=== PATIENT | male | born 1975 | race Asian ===

== ENCOUNTER 2023-10-13 23:45 | Observation (INO) | payer OTHER, SELFPAY ==
[2023-10-13 21:45] VITALS: BP 107/71
--- NOTE | 2023-10-13 21:52 | ED.CVA ---
History of Present Illness
General
Chief Complaint: CVA/TIA Symptoms
Source: patient and family
Exam Limitations: none
Time Seen by Provider: 10/13/23 21:52
Nursing documentation reviewed up to this point in time: agreed with
Onset of Stroke Symptoms
Onset of symptoms known: Yes
Date of onset of symptoms: 09/29/23
History of Present Illness
History of Present Illness:
Pleasant 48-year-old male that presents with inability to write. Patient states that for the last week and 1/2 to 2 weeks, he has been unable to write sentences with his hand. He has been able to type and speak normally. Denies slurring of
speech. Reports no confusion or headache. noticed this symptom this past weekend when she asked him to write out a check. He states that he was unable to fill 1 out correctly. Though nothing changed today, wanted to bring him in for
evaluation. Patient was given a blank check to fill out and was unable to do so in the emergency department. He states that his results, (which are scanned into the chart), were his best effort.
Phy Exam
General Physical Exam
General Presentation: well appearing and no apparent distress
General Skin: warm and dry
General Habitus: normal
General Mental: alert
General Hydration: appears well hydrated
ENT Exam
ENT Exam: EOMI, pharynx normal, neck supple and normocephalic
Eye Exam
Eye Exam: PERRL, cornea clear and conjunctiva normal
Cardiovascular Exam
Cardiovascular Exam: regular rate/rhythm, no edema, no murmur and normal peripheral pulses
Pulmonary Exam
Pulmonary Exam: lungs clear, no respiratory distress, no rales, no crackles, no rhonchi, no stridor, no wheezing and no cough
Gastrointestinal Exam
Gastrointestinal Exam: normal bowel sounds, non tender, soft, no organomegaly, no pulsatile mass and non distended
Neurological Exam
Neurological Exam: alert, oriented x3, no motor deficits and speech normal
Musculoskeletal Exam
Musculoskeletal Exam: full ROM and no edema
Skin Exam
Skin Exam: normal color, warm/dry, no rash and no petechia
Psychiatric Exam
Psychiatric Exam: normal mood/affect
Scores
NIH Stroke Score
Level of Consciousness: 0 - Alert
LOC Questions: 0-Answers both correctly
LOC Commands: 0-Performs both correctly
Best Horizontal Gaze: 0-Normal
Visual Rivera: 0=Normal, no visual loss
Facial Palsy: 0=Normal, symmetrical
Motor - Right Arm: 0=No drift 10 seconds
Motor - Left Arm: 0=No drift 10 seconds
Motor - Right Le-No drift 5 seconds
Motor - Left Le-No drift 5 seconds
Limb Ataxia: 0-Absent
Sensation: 0-Normal
Best Language: 0-No aphasia
Dysarthria: 0-Normal
Extinction and Inattention: 0-No abnormality
Total Score:: 0
Course
Orders/Labs/Results
Orders:
Orders
10/13/23 22:07
CT Head & Neck Angio W/wo IV Urgent
Comment:
Reason For Exam: expressive aphasia
Cardiac Monitoring- Treatment ONCE
10/13/23 22:08
Electrocardiogram (*1) Stat
Reason for Study: Other
Other Reason for Exam: neuro symptoms
EKG- Treatment ONCE
10/13/23 22:11
Complete Blood Count/With Diff Urgent
Comprehensive Metabolic Panel Urgent
Erythrocyte Sed Rate Urgent
PTT Urgent
Prothrombin Time Urgent
Troponin I Urgent
Abnormal Lab Results
10/13/23
22:11
RBC 4.51 L 10^6/uL
(4.70-6.10)
Hct 37.7 L %
(39.0-52.0)
Absolute Monos (auto) 0.7 H 10^3/uL
(0.1-0.6)
Glucose 100 H mg/dl
(70-99)
10/13/23 22:11
10/13/23 22:11
Vital Signs
Initial and Last Documented VS:
Initial Vital Signs
Temp Pulse Resp BP Pulse Ox
98.5 F 87 18 107/71 99
10/13/23 21:45 10/13/23 21:45 10/13/23 21:45 10/13/23 21:45 10/13/23 21:45
Last Documented Vital Signs
Temp Pulse Resp BP Pulse Ox
98.5 F 70 14 105/73 98
10/13/23 21:45 10/13/23 22:00 10/13/23 22:00 10/13/23 22:00 10/13/23 21:54
*Critical Care Note
Total Time (30-74mins, 75-104mins- exclusive of procedures): Not Applicable
Update Note
Update Note:
Spoke with Dr. Mauro Rodriguez, neurology who agreed with plan for CT CT angio. MRI with gadolinium in the morning.
CT HEAD, CTA HEAD, CTA NECK
IMPRESSION:
HEAD:
No intracranial hemorrhage, herniation, or hydrocephalus.
No calvarial fracture.
CTA HEAD:
No large vessel occlusion or critical stenosis within the anterior or posterior circulation. Hypoplastic right A1.
CTA NECK:
No large vessel occlusion or critical stenosis within the anterior or posterior circulation.
ED Attending Note
-
Portions of this chart may have been created with voice recognition software.� Occasional wrong word or��sound alike� substitutions may have occurred due to the inherent limitations of voice recognition software.
Discharge Plan
Departure
Patient Disposition: Admit
Date of Disposition: 10/13/23
Time of Disposition: 23:40
Presentation/result/management discussed w/ accepting MD/DO: Hospitalist
Condition: Good
Discharge Problem:
Difficulty writing checks, Expressive aphasia
Referrals:
PRIVATE,PHYSICIAN [Family Provider] -
Interventions
Interventions:
*Risk Screen - Suicide Last Done: 10/13/23 21:54
*General Assessment Last Done: 10/13/23 21:45
ED- Fall Risk Assessment Last Done: 10/13/23 21:54
*ED COVID-19 Vaccine History Last Done: 10/13/23 21:54
ED- Pulmonary Assessment Last Done: 10/13/23 21:54
ED- Neurological Assessment Last Done: 10/13/23 21:54
ED- Cardiac Assessment Last Done: 10/13/23 21:54
ED Swallowing Screen Last Done: 10/13/23 22:04
Discharge Date and Time
Print Language: ZIMBAB[place]
[2023-10-13 21:54] VITALS: BMI 25.6
[2023-10-13 21:58] VITALS: BP 119/83
[2023-10-13 22:00] VITALS: BP 105/73
[2023-10-13 22:21] LABS: % Basophils 0.6 % (0-2); % Eosinophils 2.9 % (0-6); % Immature Granulocytes 0.4 % (0-0.5); % Lymphocytes 30.4 % (20.5-51.1); % Monocytes 8.1 % (1.7-9.3); % Neutrophils 57.6 % (42.2-75.2); Absolute Basophils 0.1 10^3/uL (0-0.2); Absolute Eosinophils 0.3 10^3/uL (0-0.7); Absolute Lymphocytes 2.6 10^3/uL (1.2-3.4); Absolute Monocytes 0.7 10^3/uL (0.1-0.6); Absolute Neutrophils 4.9 10^3/uL (1.4-6.5); Hematocrit 37.7 % (39.0-52.0); Hemoglobin 13.5 g/dL (13.0-18.0); Mean Corp Hgb Conc. 35.8 g/dL (33.0-37.0); Mean Corpuscular Hgb 29.9 pg (27.0-31.0); Mean Corpuscular Volume 83.6 fL (80.0-94.0); Mean Platelet Volume 10.2 fL (7.4-10.4); Nucleated Red Blood Cells % 0 % (-); Platelet Count 205 10^3/uL (130-400); Red Blood Cell Count 4.51 10^6/uL (4.70-6.10); Red Cell Dist. Width 12.9 % (11.5-14.5); White Blood Cell Count 8.5 10^3/uL (4.8-10.8)
[2023-10-13 22:32] LABS: INR 1.16; PT 14.6 Sec (11.4-14.6)
[2023-10-13 22:33] LABS: APTT 25.3 Sec (23.4-35.0)
[2023-10-13 22:36] LABS: ALT (SGPT) 23 U/L (0-50); AST (SGOT) 24 U/L (17-59); Albumin 4.2 g/dl (3.5-5.0); Alkaline Phosphatase 67 U/L (38-126); Blood Urea Nitrogen 19 mg/dl (9-20); Calcium 9.1 mg/dl (8.4-10.2); Carbon Dioxide 25 mmol/L (22-30); Chloride 106 mmol/L (98-107); Estimated Creatinine Clearance 86 ml/min; Glucose 100 mg/dl (70-99); Potassium 3.9 mmol/L (3.5-5.1); Sodium 138 mmol/L (135-145); Total Bilirubin 0.8 mg/dl (0.2-1.3); Total Protein 6.9 g/dl (6.3-8.2); eGFR > 60.00
[2023-10-13 22:44] LABS: Erythrocyte Sed Rate 10 mm/hour (0-20)
[2023-10-13 22:47] LABS: Troponin I < 0.012 ng/ml
[2023-10-13 23:00] VITALS: BP 122/75
--- NOTE | 2023-10-13 23:24 | HPS.HSE ---
Family Physician
-
Family Physician: PHYSICIAN PRIVATE
Chief Complaint
-
trouble witting
History of Present Illness
HPI
48M no prior significant PMHx seen at ER for acute presentation of trouble witting
- approx for 1week
- reports trouble witting sentences on paper noted for 1 week
- how ever he is able to type on the computer
- denied abnormal speech
- denied cloudy mind or NAV[place]RE[place]
- unable to fill out the CHQ correctly - it is scanned
Medical History
Past Medical History
Past Medical History: Reports None
Past Surgical History: Reports None
Social History
Tobacco: Non-smoker
Alcohol: None
Drug: None
Family History
Family History: Not pertinent
Allergies / Home Medications
Allergies reflects when Allergies were last updated in [facility].
Home Medications with original date entered in [facility]
Allergy/Medication List:
No reg Meds
Review of Systems
-
Constitutional: Reports No Symptoms
EENT: Reports No Symptoms
Respiratory: Reports No Symptoms
Cardiac: Reports No Symptoms
Abdomen/GI: Reports No Symptoms
: Reports No Symptoms
Musculoskeletal: Reports No Symptoms
Skin: Reports No Symptoms
Neurological: Reports See HPI
Endocrine: Reports No Symptoms
Hematologic/Lymphatic: Reports No Symptoms
Psych: Reports No Symptoms
Physical Exam
Vital Signs
Vital Signs
Temp Pulse Resp BP Pulse Ox
98.5 F 70 14 105/73 98
10/13/23 21:45 10/13/23 22:00 10/13/23 22:00 10/13/23 22:00 10/13/23 21:54
Physical Exam
General: Well Developed, Well Nourished and No Apparent Distress
HEENT: NormoCephalic, Moist mucous membranes and Atraumatic
Respiratory: Clear
Cardiac: S1/S2 and Regular Rhythm; No Murmur or Rub
GI: Soft, Non Tender, Non Distended and Normal Bowel Sounds; No Organomegaly
Rectal: Deferred by Provider
Musculoskeletal: No Clubbing, No Cyanosis and No Edema
Skin: No Rash
Neuro: Nonfocal/grossly intact
Laboratory Results
-
10/13/23 22:11
10/13/23 22:11
Laboratory Results
PT 14.6 Sec (11.4-14.6) 10/13/23 22:11
INR 1.16 10/13/23 22:11
APTT 25.3 Sec (23.4-35.0) 10/13/23 22:11
Total Bilirubin 0.8 mg/dl (0.2-1.3) 10/13/23 22:11
AST 24 U/L (17-59) 10/13/23 22:11
ALT 23 U/L (0-50) 10/13/23 22:11
Alkaline Phosphatase 67 U/L (38-126) 10/13/23 22:11
Troponin I < 0.012 ng/ml 10/13/23 22:11
Data Reviewed
-
CT Scan: Discussed with Physician
Medical Tests (Nuc Med, Echo, EKG etc): Report Reviewed by me
Lab Data: Labs Reviewed by me
Impression/Plan
-
Reviewed VS: BP 105/70 HR 70
Data
Unremarkable CBC and CMP
NEG TPNI
EKG
NORMAL SINUS RHYTHM
NORMAL ECG
NO PREVIOUS ECGS AVAILABLE
CTA H & N and HCT
HEAD:
No intracranial hemorrhage, herniation, or hydrocephalus.
No calvarial fracture.
CTA HEAD:
No large vessel occlusion or critical stenosis within the anterior or posterior circulation. Hypoplastic right A1.
CTA NECK:
No large vessel occlusion or critical stenosis within the anterior or posterior circulation.
NO PRIOR hospitalist admission:
ASSESSMENT & PLAN
Acute onset of loss sensical writing skills without loss of fine motor function ; isolated lacuna infarct : NEG HCT and NEG CTA of H & N as above
Intact expressive and perceptive speech
Non focal neuro deficit
EVAL for TIA/CVA
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
No FHx CVA
- Empiric ASA 81 daily
- MRI with Gado per ER attd d/w Neuro
- Speech to eval
- Lipids and A1 C
- Neuro consulted
DVT Px: SCD
Code: Full
Obs TLM
[2023-10-14] VITALS (7 sets, daily range): BP systolic 100–149; BP diastolic 71–132; BMI 24.4
--- NOTE | 2023-10-14 02:45 | PTCARENOTE ---
Received pt from ED via wheelchair. Pt ambulated to bed without assistance. AAOx3; NIH 0. Pt offers no complaints at this time. VSS. Oriented to room. Resting in bed with call hodgson in reach.
[2023-10-14 05:24] LABS: HDL Cholesterol 59 mg/dl; LDL Cholesterol, Calculated 125 mg/dl; Total Cholesterol 195 mg/dl (50-199); Triglyceride 56 mg/dl (10-149); Very Low Density Lipoprotein 11 mg/dl (0-30)
--- NOTE | 2023-10-14 08:40 | W.PN.HOSP.TC ---
Addendum entered and electronically signed by Yong Schmitt DO 10/14/23 14:55:
After patient was discharged I reviewed neurology input based on their progress note. Mention of starting antiepileptic drug was noted. Prescription for Keppra sent to patient's pharmacy. I spoke with patient's on the phone and she
understands that she needs to cook pickled meat the seizure medication this afternoon. All questions answered on the phone.
Addendum entered and electronically signed by Yong Schmitt DO 10/14/23 12:22:
Unfortunately brain MRI suggestive of glioblastoma.
Discussed with neurology service. Recommend neurosurgery consult.
However, patient refusing to stay for neurosurgery evaluation and wants to go home today. He wants to follow-up with neurosurgery as an outpatient.
Will discharge.
Original Note:
Today's Communication/Plan
-
Neurology consult
Brain MRI
Assessment / Plan
Assessment / Plan
Gen-AAOx3, NAD
HEENT-NC, AT, anicteric, clear oral mm
Neck-supple
CV-reg, no M, +S1/S2
Lungs-clear B/L
Abd-soft, NT, ND
Ext-no edema
Musculoskeletal-no cyanosis, clubbing
Skin-warm and dry
Neuro-grossly non-focal
Psych-calm, cooperative
Writing difficulty -unclear etiology. Brain MRI pending. Neurology consulted. Patient denies any other past medical history, does not take prescription medications at home. CTA head and neck completed, report pending.
Will resume diet.
Full code
Anticipated Discharge: Within 24 hours
Subjective/Interval History
-
Date of Service: October 14, 2023
Patient seen and examined. Still with difficulty writing. Denies any other symptoms.
Objective Data
-
Labs:
Laboratory Results
10/13/23
22:11
WBC 8.5
Hgb 13.5
Hct 37.7 L
Plt Count 205
PT 14.6
INR 1.16
APTT 25.3
Sodium 138
Potassium 3.9
Chloride 106
Carbon Dioxide 25
BUN 19
Creatinine 1.1
Glucose 100 H
Calcium 9.1
Total Bilirubin 0.8
AST 24
ALT 23
Alkaline Phosphatase 67
Vital Signs:
Vital Signs
Temp Pulse Resp BP Pulse Ox
98.1 F 56 18 100/86 100
10/14/23 07:44 10/14/23 03:00 10/14/23 02:15 10/14/23 03:14 10/14/23 03:14
Review of Systems
-
History Source: Patient
All other systems: Reviewed and negative
--- NOTE | 2023-10-14 08:51 | CON.NEURO4 ---
Consultation - Neurology 4
-
CONSULTING PHYSICIAN: Mauro Rodriguez MD(Neurology)
REFERRING PHYSICIAN: Lupillo Schmitt
DICTATED BY: Mauro Rodriguez
DATE/TIME OF REQUEST: 10/13/2023
DATE/TIME OF CONSULTATION: 10/14/2023 0900
Reason for Consultation: Difficulty Writing
History of Present Illness:
This is a 48 year old left handed male who has presented to the hospital with difficulty writing. He has has no previous medical history. He had been in his USOH till a week ago. At that time he noted that he could use the keyboard but was unable
to write. No weakness and he was independent in using his arm and hand in all activities. He denied headaches, dizziness or double vision. No difficulty speaking swallowing loss of balance incoordination or gait impairment. No LOC or seizures. No
nausea. No incontinence.
He had no new symptoms prior to coming into the ER. His was concerned he had a stroke and brought him to the ED
Past Medical History: None
Surgical History: None
Family History: NC. lives at home with his and children
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
Allergies: None
Home Medications: None
Review of Symptoms:
Patient denies any fever, headache, chest pain, shortness of breath, GI or symptoms.
�Per the HPI.�All systems are reviewed negative except above.
�-
Vital Signs:
The patient has a Temp 36.7 C Pulse 64 Resp 18 BP 124/90 Pulse Ox 99
Physical Exam:
The patient is afebrile, heart sounds S1 and S2 are (regular / irregular), and chest is clear to auscultation bilaterally.
Neurologic Examination:
The patient is awake, alert and oriented x 3. He is able to follow commands and answer questions appropriately. There is no aphasia or dysarthria. On cranial nerve assessment, pupils are 3-4 mm bilaterally, round and reactive to light and
accommodation. Visual mcmullen are full. Extraocular movements are intact. Facial sensations are intact and bilaterally symmetrical, there is no facial asymmetry. Hearing is intact bilaterally to normal conversation volume. Tongue palate and uvula
are midline. Sternocleidomastoid strengths are full bilaterally. Motor strengths are 5/5 bilateral upper and lower extremities on medical research [place] scale. There is no drift or involuntary movement noted. Deep tendon reflexes are 2+ bilateral
upper and lower extremities and Babinski is absent bilaterally. Sensations of pain, touch, temperature and vibration are intact and bilaterally symmetrical. There was no extinction noted on double simultaneous stimulation. Coordination is intact by
finger to nose bilaterally.
Lab Results:
Neuro Imaging: On unenhanced CT of the head, there is thickening and central decreased density of the splenium of the corpus callosum, mainly centrally and toward the left side. Postcontrast images peripheral enhancement. Findings are highly
concerning for neoplasia. Given the corpus callosal involvement, HYDRAULIC JACK MECHANIC lymphoma would be the leading consideration.
Subtle foci of increased density and possible slight enhancement involving the right parietal and right frontal lobes, also concerning for neoplasia
No significant narrowing involving the common carotid arteries, carotid bulbs, proximal internal carotid arteries bilaterally.
Normal appearance of the vertebral and basilar arteries.
No evidence for large vessel occlusion of the intracranial circulation.
MRI head reveals
Large mass spanning the entire splenium of the corpus callosum. There are also subcortical lesions in the right frontal lobe, paramidline right occipital lobe, and right parietal lobe, as described.
The differential may include primary HYDRAULIC JACK MECHANIC lymphoma, tumefactive acute disseminating encephalomyelitis, tumefactive multiple sclerosis, glioblastoma (butterfly glioma pattern), or astrocytoma.
Impression:
Mr. 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
Differentials for the patient's presentation include:
1. ADEM
2. Multiple Sclerosis
Recommendations:
1. Neurosurgery Consult
2. Radiation Oncology
3. Seizure prophylaxis
Discussed patient care with: Hospitalist
Vital Signs and Labs
-
Vital Signs and Labs:
Vital Signs
Temp Pulse Resp BP Pulse Ox
36.7 C 64 18 124/90 99
10/14/23 07:44 10/14/23 08:06 10/14/23 02:15 10/14/23 08:06 10/14/23 10:13
Lab Results
10/13/23 22:11
10/13/23 22:11
PT 14.6 Sec (11.4-14.6) 10/13/23 22:11
INR 1.16 10/13/23 22:11
APTT 25.3 Sec (23.4-35.0) 10/13/23 22:11
Sodium 138 mmol/L (135-145) 10/13/23 22:11
Potassium 3.9 mmol/L (3.5-5.1) 10/13/23 22:11
BUN 19 mg/dl (9-20) 10/13/23 22:11
Glucose 100 mg/dl (70-99) H 10/13/23 22:11
Calcium 9.1 mg/dl (8.4-10.2) 10/13/23 22:11
LDL Cholesterol, Calc 125 mg/dl 10/14/23 04:42
[2023-10-14] MEDS: LOW STRENGTH ASPIRIN 81 MG PO (09:04)
[2023-10-14 09:57] LABS: Glycohemoglobin (HgbA1c) 5.5 % (4.0-5.6)
--- NOTE | 2023-10-14 12:14 | W.DS.TRANS ---
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
-
Discharge Instructions:
Discharge Diagnosis/Procedures Large brain mass in the corpus callosum
Diet Regular
Activity As tolerated
Driving Restrictions As prior to admission
Bathing Restrictions None
Instructions:
Stand-Alone Forms:
Changes to Home Medications: No
Discharge Medications:
Home Medication Changes
Pending Results: No
--- NOTE | 2023-10-14 12:35 | PTCARENOTE ---
pt does not want to see neurosurgery or have ct scan at this time. pt requested to leave hospital and follow up with his primary doctor. discussed with dr Schmitt and pt being discharged home to follow up with his dr. instructions given to pt and
.
--- NOTE | 2023-10-14 12:44 | CM ---
Patient with Dx writing difficulty -unclear etiology. Brain MRI today showing large mass.
Met with patient and his Shira;
the patient resides with his in a 2 story house.
He has been independent in ADLs and ambulation, with no difficulty in doing stairs at home.
The patient had been active, was working and driving.
He has no DME or prior VN.
PCP - Jennifer Moctezuma at [facility]
Pharmacy - [facility], [place]
Observation status - explained to patient & . Patient unable to sign letter due to writing impairment, signed.
Patient and appeared distressed - they expressed that they are still shocked at MRI finding and trying to process what MD conveyed to them. Discussed with nurse Licha who was aware.
The will provide transport home today.
No CM d/c needs identified.
Plan home today.
== END 2023-10-14 13:36 | disposition home or self-care (01) ==
LOC: IMU 23:45
PROVIDERS: ADMITTING PHYSICIAN Internal Medicine; ATTENDING PHYSICIAN Hospitalist; CONSULT PHYSICIAN Psychiatry & Neurology Neurology; EMERGENCY PHYSICIAN Student in an Organized Health Care Education/Training Program
DX: G93.9 Disorder of brain, unspecified (principal); R47.01 Aphasia; R29.818 Other symptoms and signs involving the nervous system; Z79.82 Long term (current) use of aspirin
CPT/HCPCS: 70496; 70498; 70553; 80053; 80061; 83036; 84484; 85025; 85610; 85652; 85730; 92610; 93005; 99285; A9575; G0378; Q9967

== ENCOUNTER 2023-12-18 23:40 | Emergency (ER) | payer OTHER, SELFPAY ==
[2023-12-19 00:08] VITALS: BP 109/74
[2023-12-19 00:34] LABS: COVID-19 Antigen Negative (Negative)
[2023-12-19 00:42] LABS: ALT (SGPT) 41 U/L (0-50); AST (SGOT) 22 U/L (17-59); Albumin 3.8 g/dl (3.5-5.0); Alkaline Phosphatase 65 U/L (38-126); Blood Urea Nitrogen 17 mg/dl (9-20); Calcium 9.1 mg/dl (8.4-10.2); Carbon Dioxide 27 mmol/L (22-30); Chloride 104 mmol/L (98-107); Glucose 143 mg/dl (70-99); Potassium 3.9 mmol/L (3.5-5.1); Sodium 140 mmol/L (135-145); Total Bilirubin 0.5 mg/dl (0.2-1.3); Total Protein 6.2 g/dl (6.3-8.2); eGFR > 60.00
[2023-12-19 00:49] LABS: Hematocrit 33.4 % (39.0-52.0); Hemoglobin 11.6 g/dL (13.0-18.0); Mean Corp Hgb Conc. 34.7 g/dL (33.0-37.0); Mean Corpuscular Hgb 29.8 pg (27.0-31.0); Mean Corpuscular Volume 85.9 fL (80.0-94.0); Mean Platelet Volume 10.4 fL (7.4-10.4); Platelet Count 232 10^3/uL (130-400); Red Blood Cell Count 3.89 10^6/uL (4.70-6.10); Red Cell Dist. Width 13.7 % (11.5-14.5); White Blood Cell Count 4.6 10^3/uL (4.8-10.8)
[2023-12-19 01:19] LABS: % Basophils 1.3 % (0-2); % Eosinophils 2.2 % (0-6); % Immature Granulocytes 3.9 % (0-0.5); % Lymphocytes 17.3 % (20.5-51.1); % Monocytes 14.7 % (1.7-9.3); % Neutrophils 60.6 % (42.2-75.2); Absolute Basophils 0.1 10^3/uL (0-0.2); Absolute Eosinophils 0.1 10^3/uL (0-0.7); Absolute Immature Granulocytes 0.2 10^3/uL (0-0.05); Absolute Lymphocytes 0.8 10^3/uL (1.2-3.4); Absolute Monocytes 0.7 10^3/uL (0.1-0.6); Absolute Neutrophils 2.8 10^3/uL (1.4-6.5); Nucleated Red Blood Cells % 0 % (-)
[2023-12-19 02:07] VITALS: BMI 24.0
--- NOTE | 2023-12-19 02:13 | EDRN ---
Updated the patient and about delay, turned down lights, patient did not want to change as he feels better, informed him we can wait until the provider sees him and go from there, labs drawn and sent in triage.
[2023-12-19 02:40] VITALS: BP 117/78
[2023-12-19 02:52] LABS: Urine Albumin Negative (Neg - Trace); Urine Bilirubin Negative (Negative); Urine Character Clear (Clear); Urine Color Yellow; Urine Glucose Negative (Negative); Urine Ketone Negative (Negative); Urine Leukocyte Negative (Negative); Urine Nitrite Negative (Negative); Urine Occult Blood Negative (Negative); Urine Urobilinogen Negative (Neg - 1+)
--- NOTE | 2023-12-19 03:05 | ED.GENMED ---
History of Present Illness
General
Chief Complaint: Fever
Source: patient, spouse and previous hospital records (Hospitalization September of this year, diagnosed with brain mass.)
Exam Limitations: none
Time Seen by Provider: 12/19/23 02:11
Nursing documentation reviewed up to this point in time: agreed with
History of Present Illness
History of Present Illness:
This is a 48-year-old gentleman who was diagnosed with brain mass September of this year when he presented with complaints of 1 to 2-week history of difficulty writing. MRI revealed a large mass spanning the entire splenium of the corpus callosum. A
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 He follows with oncologist at [place] and was started on a clinical trial November 25 which includes methotrexate, rituximab, Temodar and an additional medication. Thus far has been
tolerating well but tonight he developed a fever around 9 PM of 101 �F. His thought that he felt warm to touch and checked his temperature. Patient however has been feeling well, no chills nor aches. He does admit to a mild chronic headache
that has been stable and unchanged. He had very brief mild cough tonight with a brief tickle in the back of his throat but no persistent cough, no sore throat, no nasal congestion. No shortness of breath, no abdominal pain, no nausea or vomiting,
no diarrhea or constipation. No dysuria and urgency and or hematuria. He has not had a rash.
His appetite has been good. No change in weight.
No sick contacts. No recent travel.
He did not take anything for his fever.
He called his oncologist on-call and was recommended to come to the ED for further evaluation.
Initial oral temperature upon arrival to the ED 100.1 �F.
Past History
Past History
ED Past Medical History: Cancer (SUPERVISOR CRACK OFF lymphoma diagnosed September 2023 follows with oncologist at [place])
ED Past Surgical History: Brain (Brain biopsy September 2023) and Tonsilectomy
Social History
Tobacco: Non-smoker
Alcohol: None
Drug: None
Personal:
Living: with family
Employment: Employed
Family History
Family History: Other (Noncontributory)
Phy Exam
Physical Exam
Physical Exam:
GENERAL: 48-year-old male appears his stated age, awake and alert, pleasant, appears in no acute distress. Respirations are easy nonlabored. No cough appreciated during exam. is accompanying.
EYE: Wears corrective lenses. Pupils equal and reactive. anicteric
NECK: Supple, nontender, no meningismus, no significant adenopathy.
ENT: posterior pharynx is clear, oral mucosa is moist. TM clear b/l, nares patent.
CARDIAC: Regular rate and rhythm. no murmur. No rub.
LUNGS: Clear breath sounds bilaterally, no acute respiratory distress, no wheezes/rales/rhonchi
ABDOMEN: Soft, nondistended, without focal tenderness, no r/g, no cvat. normoactive BS.
NEUROLOGICAL: Alert and oriented x3, no focal neuro deficits. Gait is steady.
SKIN: Warm and dry, normal color, skin intact. No rash.
MUSCULOSKELETAL: No C/C/E. peripheral pulses are full and equal b/l. No palpable tenderness.
PSYCH: Normal and appropriate interaction.
Course
Orders/Labs/Results
Orders:
Orders
12/19/23 00:21
COVID-19 Antigen Urgent
Source: Nasal Swab
Complete Blood Count/With Diff Urgent
Comprehensive Metabolic Panel Urgent
12/19/23 02:14
Lactic Acid Urgent
12/19/23 02:15
Blood Culture Urgent
JOSEPH Source: Blood/Venous
Specimen Description:
12/19/23 02:38
Urinalysis Reflex To Culture Urgent
Date Specimen was Collected: 12/19/23
Time Specimen was Collected: 02:16
12/19/23 02:45
Blood Culture Routine
JOSEPH Source: Blood/Venous
Specimen Description:
Abnormal Lab Results
12/19/23
00:21
WBC 4.6 L 10^3/uL
(4.8-10.8)
RBC 3.89 L 10^6/uL
(4.70-6.10)
Hgb 11.6 L g/dL
(13.0-18.0)
Hct 33.4 L %
(39.0-52.0)
Abs Immat Gran (auto) 0.2 H 10^3/uL
(0-0.05)
Absolute Lymphs (auto) 0.8 L 10^3/uL
(1.2-3.4)
Absolute Monos (auto) 0.7 H 10^3/uL
(0.1-0.6)
Immature Gran % 3.9 H %
(0-0.5)
Lymphocytes % 17.3 L %
(20.5-51.1)
Monocytes % 14.7 H %
(1.7-9.3)
Glucose 143 H mg/dl
(70-99)
Total Protein 6.2 L g/dl
(6.3-8.2)
12/19/23 00:21
12/19/23 00:21
Vital Signs
Initial and Last Documented VS:
Initial Vital Signs
Temp Pulse Resp BP Pulse Ox
100.1 F 121 18 109/74 99
12/19/23 00:08 12/19/23 00:08 12/19/23 00:08 12/19/23 00:08 12/19/23 00:08
Last Documented Vital Signs
Temp Pulse Resp BP Pulse Ox
99.2 F 96 16 117/78 100
12/19/23 01:17 12/19/23 02:40 12/19/23 02:40 12/19/23 02:40 12/19/23 02:40
MDM/Problems Addressed
Differential Diagnosis Includes:
Patient with SUPERVISOR CRACK OFF lymphoma, currently on chemotherapy and immunotherapy regimen presents with acute fever.
Concern for neutropenic fever, pneumonia, pneumonitis, UTI, bacteremia.
Overall quite well in appearance, nontoxic. Fever dissipating without intervention.
Labs thus far reassuring with white blood cell count mildly low at 4.6 but ANC reassuring at 2900.
Chemistries reveal mildly elevated random glucose of 143 otherwise unremarkable.
COVID antigen is negative.
Will plan for lactic acid, 2 sets of blood cultures and urinalysis with reflex to culture.
Patient has had no cough, lungs are clear to auscultation. At this point no indication for chest x-ray.
As patient is without significant neutropenia, overall well in appearance and fever dissipating without intervention. At this point no indication for antibiotics for coverage of neutropenic fever.
If urinalysis and lactic acid unremarkable we will plan to discharge to home with recommendations for prompt follow-up with oncologist.
Discussed importance of remaining well-hydrated.
Return precautions discussed.
Chronic conditions affecting care: Immunosuppressed and Cancer
*Pulse Oximetry
Patient hypoxic: no
*Critical Care Note
Total Time (30-74mins, 75-104mins- exclusive of procedures): Not Applicable
ED Attending Note
-
Portions of this chart may have been created with voice recognition software.� Occasional wrong word or��sound alike� substitutions may have occurred due to the inherent limitations of voice recognition software.
Discharge Plan
Departure
Discharge Problem:
Acute febrile illness, SUPERVISOR CRACK OFF lymphoma
Instructions: Fever, Adult (DC)
Prescriptions:
No Action
levetiracetam [Keppra] 500 mg tablet
500 mg PO BID Qty: 60 0RF
Referrals:
THAD SUAREZ [Other]
Activity Restrictions/Additional Instructions:
Touch base with your oncologist later today, Thursday, December 18 for recheck.
Stay well-hydrated on a daily basis. You may take Tylenol as needed for fever. If Tylenol is ineffective or if you develop a cough, severe pain, shortness of breath, vomiting, diarrhea or any other worrisome symptom, prompt return to the ER for
further evaluation.
Interventions
Interventions:
*Risk Screen - Suicide Last Done: 12/19/23 00:08
*Neglect/Abuse Screening Last Done: 12/19/23 00:08
ED- Fall Risk Assessment Last Done: 12/19/23 02:08
*ED COVID-19 Vaccine History Last Done: 12/19/23 00:08
ED- Neurological Assessment Last Done: 12/19/23 02:08
ED-Skin Assessment Last Done: 12/19/23 02:08
Discharge Date and Time
Print Language: VIET[place]ESE
[2023-12-19 03:50] LABS: Lactic Acid 0.7 mmol/L (0.7-2.0)
== END 2023-12-19 03:56 | disposition home or self-care (01) ==
LOC: EMR 23:40
PROVIDERS: Student in an Organized Health Care Education/Training Program; EMERGENCY PHYSICIAN Emergency Medicine
DX: R50.9 Fever, unspecified (principal); C85.80 Other specified types of non-Hodgkin lymphoma, unspecified site; Z11.52 Encounter for screening for COVID-19
CPT/HCPCS: 99283; 80053; 81003; 83605; 85025; 87040; 87811

== ENCOUNTER 2024-04-19 17:19 | Emergency (ER) | payer OTHER, SELFPAY ==
[2024-04-19 17:21] VITALS: BP 122/85
[2024-04-19 17:51] LABS: % Basophils 0.4 % (0-2); % Immature Granulocytes 4.6 % (0-0.5); % Lymphocytes 2.9 % (20.5-51.1); % Monocytes 13.1 % (1.7-9.3); Absolute Basophils 0.1 10^3/uL (0-0.2); Absolute Immature Granulocytes 0.6 10^3/uL (0-0.05); Absolute Lymphocytes 0.4 10^3/uL (1.2-3.4); Absolute Monocytes 1.7 10^3/uL (0.1-0.6); Absolute Neutrophils 10.2 10^3/uL (1.4-6.5); Hematocrit 26.8 % (39.0-52.0); Hemoglobin 8.8 g/dL (13.0-18.0); Mean Corp Hgb Conc. 32.8 g/dL (33.0-37.0); Mean Corpuscular Hgb 28.2 pg (27.0-31.0); Mean Corpuscular Volume 85.9 fL (80.0-94.0); Mean Platelet Volume 9.8 fL (7.4-10.4); Nucleated Red Blood Cells % 0.5 % (-); Platelet Count 369 10^3/uL (130-400); Red Blood Cell Count 3.12 10^6/uL (4.70-6.10); Red Cell Dist. Width 13.7 % (11.5-14.5)
[2024-04-19 18:00] LABS: Lactic Acid 1.4 mmol/L (0.7-2.0)
[2024-04-19 18:01] LABS: ALT (SGPT) 33 U/L (0-50); AST (SGOT) 30 U/L (17-59); Albumin 3.9 g/dl (3.5-5.0); Alkaline Phosphatase 63 U/L (38-126); Blood Urea Nitrogen 12 mg/dl (9-20); Carbon Dioxide 26 mmol/L (22-30); Chloride 103 mmol/L (98-107); Glucose 103 mg/dl (70-99); Sodium 137 mmol/L (135-145); Total Bilirubin 0.2 mg/dl (0.2-1.3); Total Protein 6.1 g/dl (6.3-8.2); eGFR > 60.00
[2024-04-19 18:23] LABS: COVID-19 Antigen Negative (Negative)
[2024-04-19 20:23] VITALS: BMI 25.3
[2024-04-19 20:25] VITALS: BP 103/70
--- NOTE | 2024-04-19 20:28 | ED.GENMED ---
History of Present Illness
General
Chief Complaint: Heart Rate Problem
Source: patient
Exam Limitations: none
Time Seen by Provider: 04/19/24 20:05
Nursing documentation reviewed up to this point in time: agreed with
History of Present Illness
History of Present Illness:
pt is a 49 y/o M
with h/o BEAM DYER lymphoma
on chemo
[place] [facility]
last dose was a few weeks ago
plan is for stem cell transplant in the future
here with elevated HR 130s from his apple watch notification
pt was asypmtomatic
no fever/chills, rigors, cough, cold sypmtoms, nausea, vomiting, diarreha, cp, sob, abd pain, sore throat, rash
pt has h/o anemia (hg 8.5 yesterday on his labs)
he called his oncologist who instructed him to come to the ER
Past History
Past History
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
ED Past Surgical History: Brain (Brain biopsy September 2023) and Tonsilectomy
Social History
Tobacco: Non-smoker
Alcohol: None
Drug: None
Personal:
Living: with family
Employment: Employed
Family History
Family History: Other (Noncontributory)
Review of Systems
Review of Systems
Allergies reviewed?: Yes
All Other Systems: Not applicable
Phy Exam
Physical Exam
Physical Exam:
GENERAL: Alert , in no apparent distress
head: ncat
EYE: pupils equal and reactive , slightly pale conjunctiva
NECK: Supple
ENT: o/p clr, mmm. no erythema
CARDIAC: tachycardic, no murmur
LUNGS: Clear breath sounds bilaterally, no acute respiratory distress, no wheezes/rales/rhonchi
ABDOMEN: Soft, without focal tenderness, no r/g, no cvat, normal bowel sounds
NEUROLOGICAL: Alert and oriented, no focal neuro deficits, cn intact, well appearing
SKIN: Warm and dry, skin intact. slightly pale
picc line
MUSCULOSKELETAL: No edema, well perfused. neg kallie's sign
PSYCH: Normal and appropriate interaction.
Sepsis
Sepsis Screening
Sepsis Assessment: Sepsis Ruled Out
Sepsis Screen
Sepsis Screen: Sepsis Ruled Out
Date: 04/21/24
Time: 19:29
Course
Orders/Labs/Results
Orders:
Orders
04/19/24 17:23
Electrocardiogram (*1) Urgent
Reason for Study: Other
Other Reason for Exam: Possible Sepsis
04/19/24 17:24
EKG- Treatment ONCE
04/19/24 17:27
Chest [CR Chest - 2 Views ] Urgent
Comment:
Reason For Exam: fever; cancer pt
04/19/24 17:37
COVID-19 Antigen Urgent
Source: Nasal Swab
Complete Blood Count/With Diff Urgent
Comprehensive Metabolic Panel Urgent
Lactic Acid Q4H
Comment: ON ICE, CANCEL 2ND ORDER IF FIRST LACTIC ACID LEVEL <2
Blood Culture Urgent
JOSEPH Source: Blood/Venous
Specimen Description:
Influenza A+B Rapid Molecular Urgent
JOSEPH Source: Nasal Swab
Specimen Description:
04/19/24 20:18
0.9% Sodium Chloride 1000 ml [Nss] 1,000 ml IV BOLUS
Acetaminophen [Tylenol] 1,000 mg PO NOW STA
04/19/24 20:38
Urinalysis Reflex To Culture Urgent
Date Specimen was Collected: 04/19/24
Time Specimen was Collected: 20:29
Blood Culture Urgent
JOSEPH Source: Blood/Venous
Specimen Description:
Abnormal Lab Results
04/19/24
17:37
WBC 13.0 H 10^3/uL
(4.8-10.8)
RBC 3.12 L 10^6/uL
(4.70-6.10)
Hgb 8.8 L g/dL
(13.0-18.0)
Hct 26.8 L %
(39.0-52.0)
MCHC 32.8 L g/dL
(33.0-37.0)
Abs Immat Gran (auto) 0.6 H 10^3/uL
(0-0.05)
Absolute Neuts (auto) 10.2 H 10^3/uL
(1.4-6.5)
Absolute Lymphs (auto) 0.4 L 10^3/uL
(1.2-3.4)
Absolute Monos (auto) 1.7 H 10^3/uL
(0.1-0.6)
Immature Gran % 4.6 H %
(0-0.5)
Neutrophils % 79.0 H %
(42.2-75.2)
Lymphocytes % 2.9 L %
(20.5-51.1)
Monocytes % 13.1 H %
(1.7-9.3)
Glucose 103 H mg/dl
(70-99)
Total Protein 6.1 L g/dl
(6.3-8.2)
04/19/24 17:37
04/19/24 17:37
Vital Signs
Temp: 38.0 C
Initial and Last Documented VS:
Initial Vital Signs
Temp Pulse Resp BP Pulse Ox
37.7 C 137 18 122/85 98
04/19/24 17:21 04/19/24 17:21 04/19/24 17:21 04/19/24 17:21 04/19/24 17:21
Last Documented Vital Signs
Temp Pulse Resp BP Pulse Ox
37.0 C 101 17 123/67 100
04/19/24 22:02 04/19/24 22:03 04/19/24 22:03 04/19/24 22:03 04/19/24 22:03
MDM/Problems Addressed
Differential Diagnosis Includes:
neutropenic fever, flu/covid, dehdyartaoin, sypmtomatic anemia
MDM/Problems Addressed:
49 y/o M with h/o BEAM DYER lymphoma
here with elevated HR
no other sypmtoms
no fever known at home
no headache/neck pain/confusion/weakness
well appearing
tachycardic 110s
intiially afebrile, rechecked by me to be 38.0
slightly pale (has known anemia, stable)
lungs clear
no murmur
no meninigsmus
nromal pharynx
neuro intact
w/u here with leukocytosis left shift, not neutropenic
chemistry normal
hg stable
ua neg
flu/covid neg
cxr clear
blood cultures pending
d/w his oncologist dr. ventura at [place]
ok to dc home without abx since not neutropenic
they will follow the blood cultures
*Critical Care Note
Total Time (30-74mins, 75-104mins- exclusive of procedures): Not Applicable
ED Attending Note
-
Portions of this chart may have been created with voice recognition software.� Occasional wrong word or��sound alike� substitutions may have occurred due to the inherent limitations of voice recognition software.
Discharge Plan
Departure
Patient Disposition: Home (Routine Discharge)
Date of Disposition: 04/19/24
Time of Disposition: 22:12
Patient with high blood pressure during this ER visit?: No
Condition: Fair
Covid-19: Negative COVID-19
Discharge Problem:
Fever, Tachycardia
Instructions: Fever in adults - Discharge instructions
Prescriptions:
No Action
levetiracetam [Keppra] 500 mg tablet
500 mg PO BID Qty: 60 0RF
Referrals:
UNKNOWN - PT DOES,NOT KNOW [Family Provider] -
Activity Restrictions/Additional Instructions:
Your elevated heart rate could have been because of your fever. We are not sure the cause of your fever. Your white count was slightly elevated
Your urine, flu, COVID, chest x-ray were all negative. I spoke with your oncologist who said it was okay to go home. We sent blood cultures so you may get a phone call if there is bacteria in your bloodstream and you may need to return. Your
oncologist said she would follow-up on the results of your blood cultures as well. Repeat please return for worsening high fever, shortness of breath, chest pain, neck stiffness fatigue etc.
Take Tylenol for fevers as needed at home and call your oncologist if you have a temperature. Drink plenty of fluids to stay hydrated
Interventions
Interventions:
*Risk Screen - Suicide Last Done: 04/19/24 20:25
*General Assessment Last Done: 04/19/24 20:25
*Neglect/Abuse Screening Last Done: 04/19/24 20:25
*ED COVID-19 Vaccine History Last Done: 04/19/24 20:25
*Nursing Disposition Last Done: 04/19/24 22:25
ED- Cardiac Assessment Last Done: 04/19/24 20:25
ED- Pulmonary Assessment Last Done: 04/19/24 20:25
Discharge Date and Time
Discharge Date/Time: 04/19/24 22:26
Print Language: MARSH[place]ESE
[2024-04-19] MEDS: NSS 1000 IV (20:44)
[2024-04-19] MEDS: TYLENOL 1000 MG PO (20:45)
[2024-04-19 20:53] LABS: Urine Albumin Negative (Neg - Trace); Urine Bilirubin Negative (Negative); Urine Character Clear (Clear); Urine Color Yellow; Urine Glucose Negative (Negative); Urine Ketone Negative (Negative); Urine Leukocyte Negative (Negative); Urine Nitrite Negative (Negative); Urine Occult Blood Negative (Negative); Urine Urobilinogen Negative (Neg - 1+)
[2024-04-19 20:57] VITALS: BP 121/71
[2024-04-19 21:00] VITALS: BP 121/69
[2024-04-19 21:30] VITALS: BP 114/63
[2024-04-19 22:03] VITALS: BP 123/67
== END 2024-04-19 22:26 | disposition home or self-care (01) ==
LOC: EMR 17:19
PROVIDERS: Emergency Medicine; Physician Assistant; EMERGENCY PHYSICIAN Student in an Organized Health Care Education/Training Program
DX: R50.9 Fever, unspecified (principal); R00.0 Tachycardia, unspecified; D64.9 Anemia, unspecified; C83.390 Primary central nervous system lymphoma
CPT/HCPCS: 99283; 96360; 71046; 80053; 81003; 83605; 85025; 87040; 87502; 87811; 93005